=== PATIENT | female | born 1970 | race African-American/Black ===

== ENCOUNTER 2016-07-04 15:45 | Emergency (ER) | payer BC ==
--- NOTE | 2016-07-04 15:57 | ER Document Report ---
ED Medical Screen (RME) - General Stated Complaint: BODY PAIN,NAUSEA,VOMITING Notes: 46 yo female with hx/o stage 3 ovarian cancer c/o severe generalized abdominal pain since Saturday. + chemo, oncologist @ [facility]. + vomiting. last treatment on Saturday. no fever. pt is tachycardic and hypertensive TRAVEL OUTSIDE OF THE [place] IN LAST 30 DAYS: No - Related Data Allergies/Adverse Reactions: No Known Allergies Allergy (Verified 01/23/16 08:31) Past Medical History GI Medical History: Reports: Hx Gastroesophageal Reflux Disease Physical Exam - Vital signs Vitals: Temp Pulse Resp BP Pulse Ox 97.2 F 121 H 26 H 141/102 H 98 07/04/16 15:51 07/04/16 15:51 07/04/16 15:51 07/04/16 15:51 07/04/16 15:51 Course - Vital Signs Vital signs: Temp Pulse Resp BP Pulse Ox 97.2 F 121 H 26 H 141/102 H 98 07/04/16 15:51 07/04/16 15:51 07/04/16 15:51 07/04/16 15:51 07/04/16 15:51
[2016-07-04] MEDS ORDERED: NORMAL SALINE 1000 ML 1,000 ML IV PRN (17:05)
[2016-07-04] MEDS ORDERED: ONDANSETRON HCL INJ/PF 4 MG/2 ML SDV IV ONE (17:06)
[2016-07-04] MEDS ORDERED: HYDROMORPHONE HCL INJ/PF 2 MG/ML AMPULE IV ONE ×2 (17:06→20:13)
--- NOTE | 2016-07-04 17:08 | ER Document Report ---
ED General - General Chief Complaint: Abdominal Pain Stated Complaint: BODY PAIN,NAUSEA,VOMITING Time seen by provider: 17:06 Mode of Arrival: Ambulatory Information source: Patient Notes: This is a 46-year-old female with stage III ovarian cancer (followed by [facility], last chemotherapy last Saturday: 5 days ago) who presents to the emergency room with decreased by mouth intake, abdominal pain. TRAVEL OUTSIDE OF THE [place] IN LAST 30 DAYS: No - HPI Onset: Last week Onset/Duration: Gradual Quality of pain: No pain Severity: None Pain Level: Denies Associated symptoms: Weakness. denies: Chills, Fever, Shortness of breath Exacerbated by: Denies Relieved by: Denies Similar symptoms previously: No Recently seen / treated by doctor: No - Related Data Allergies/Adverse Reactions: No Known Allergies Allergy (Verified 07/04/16 15:55) Home Medications: Current Home Medications Dexamethasone [Dexamethasone] 8 mg PO QAM 07/04/16 [History] Dexamethasone [Dexamethasone] 20 mg PO QPM 07/04/16 [History] Esomeprazole Magnesium [Nexium] 20 mg PO QAM 07/04/16 [History] Gabapentin [Gabapentin] 300 mg PO ASDIR PRN 07/04/16 [History] Hydromorphone HCl [Hydromorphone HCl] 1 - 3 tab PO Q4HP PRN 07/04/16 [History] Lactulose [Lactulose] 15 ml PO ASDIR PRN 07/04/16 [History] Ondansetron HCl [Ondansetron HCl] 8 mg PO Q8HP PRN 07/04/16 [History] Oxycodone HCl [Oxycodone HCl] 10 mg PO Q4HP PRN 07/04/16 [History] Prochlorperazine Maleate [Prochlorperazine Maleate] 10 mg PO Q6HP PRN 07/04/16 [ History] Past Medical History - General Information source: Patient - Social History Smoking Status: Never Smoker Cigarette use (# per day): No Chew tobacco use (# tins/day): No Frequency of alcohol use: None Drug Abuse: None Lives with: Family Family History: None Patient has suicidal ideation: No Patient has homicidal ideation: No - Past Medical History Cardiac Medical History: Reports: None Pulmonary Medical History: Reports: None EENT Medical History: Reports: None Neurological Medical History: Reports: None Endocrine Medical History: Reports: None Renal/ Medical History: Denies: Hx Peritoneal Dialysis Malignancy Medical History: Reports: Hx Ovarian Cancer GI Medical History: Reports: Hx Gastroesophageal Reflux Disease Musculoskeltal Medical History: Reports None Skin Medical History: Reports None Psychiatric Medical History: Reports: None Traumatic Medical History: Reports: None Surgical Hx: Other Review of Systems - Review of Systems Constitutional: denies: Chills, Fever EENT: No symptoms reported Cardiovascular: No symptoms reported Respiratory: No symptoms reported Gastrointestinal: See HPI Genitourinary: No symptoms reported Female Genitourinary: No symptoms reported Musculoskeletal: No symptoms reported Skin: No symptoms reported Hematologic/Lymphatic: No symptoms reported Neurological/Psychological: No symptoms reported Physical Exam - Vital signs Vitals: Temp Pulse Resp BP Pulse Ox 97.2 F 121 H 26 H 141/102 H 98 07/04/16 15:51 07/04/16 15:51 07/04/16 15:51 07/04/16 15:51 07/04/16 15:51 Notes: Physical exam: GENERAL: 36-year-old female, alert, lethargic it, and pain HEAD: Atraumatic, normocephalic. EYES: Pupils equal round and reactive to light, extraocular movements intact, sclera anicteric, conjunctiva are normal. ENT: TMs normal, nares patent, oropharynx clear without exudates. Dry mucous membranes. NECK: Normal range of motion, supple without lymphadenopathy or JVD. LUNGS: Breath sounds clear to auscultation bilaterally and equal. No wheezes rales or rhonchi. HEART: Regular rate and rhythm without murmurs, rubs or gallops. ABDOMEN: Soft, normoactive bowel sounds. Patient is tender around the umbilicus , there is palpable masses in the abdomen. No masses appreciated. EXTREMITIES: Normal range of motion, no pitting or edema. No clubbing or cyanosis. NEUROLOGICAL: Cranial nerves II through XII grossly intact. Normal speech, normal gait. PSYCH: Normal mood, normal affect. SKIN: Warm, Dry, normal turgor, no rashes or lesions noted. Course - Re-evaluation Re-evalutation: 07/04/16 23:44 On repeat evaluation, the patient looks quite good. She responded well to IV fluids. I did give her some pain medicine and some antiemetics. She does feel good enough to go home. I don't see any evidence of infection tonight. She will follow-up with her oncologist. I've advised her to return if she has any problems. I've given her copies of her labs, CT report as well as a CT on disc for when she sees the oncologist. 07/04/16 23:45 - Vital Signs Vital signs: Temp Pulse Resp BP Pulse Ox 97.2 F 121 H 24 H 139/114 H 100 07/04/16 15:51 07/04/16 15:51 07/04/16 20:01 07/04/16 20:00 07/04/16 20:01 - Laboratory Result Diagrams: 07/04/16 17:45 07/04/16 17:45 Laboratory results interpreted by me: 07/04/16 07/04/16 07/04/16 17:45 17:45 18:35 RDW 17.5 H Sodium 131.8 L Chloride 96 L BUN 23 H Glucose 126 H Lipase 22.8 L Urine Protein 30 H Urine Glucose (UA) 50 H Urine Ketones 20 H Urine Blood SMALL H Urine Urobilinogen 2.0 H - Diagnostic Test Radiology reviewed: Image reviewed, Reports reviewed - CT shows intraperitoneal fluid with ovarian mass. Discharge - Discharge Clinical Impression: Dehydration, abdominal pain, ovarian cancer Condition: Stable Disposition: HOME, SELF-CARE Additional Instructions: Recommendations: Work on the fluid in tight: A little at a time. Continue with your medicines. Follow-up with [facility] as planned When you do go to the oncologist, bring a copy of today's labs and CT report as well as the CT itself. Return to the emergency room for worsening pain, if you're unable to tolerate fluids or any concerns he getting worse. Referrals: PADMAJA CLEMENT MD [Primary Care Provider] - Follow up as needed
[2016-07-04 18:05] LABS: ABSOLUTE LYMPHOCYTES (AUTO) 1.1 10^3/uL (0.5-4.7); ABSOLUTE MONOCYTES (AUTO) 0.3 10^3/uL (0.1-1.4); ABSOLUTE NEUT (AUTO) 2.5 10^3/uL (1.7-8.2); BASOPHILS % (AUTO) 0.3 % (0-2); EOSINOPHILS % (AUTO) 0.6 % (0-6); HEMATOCRIT 39.1 % (36.0-47.0); HEMOGLOBIN 12.7 g/dL (12.0-15.5); LYMPHOCYTES % (AUTO) 28.5 % (13-45); MEAN CORPUSCULAR HEMOGLOBIN 27.3 pg (27.0-33.4); MEAN CORPUSCULAR HGB CONC 32.5 g/dL (32.0-36.0); MEAN CORPUSCULAR VOLUME 84 fl (80-97); MONOCYTES % (AUTO) 7.5 % (3-13); RED BLOOD COUNT 4.65 10^6/uL (3.72-5.28); RED CELL DISTRIBUTION WIDTH 17.5 % (11.5-14.0); SEGMENTED NEUTROPHILS % (AUTO) 63.1 % (42-78)
[2016-07-04 18:09] LABS: ALANINE AMINOTRANSFERASE 25 U/L (9-52); ALBUMIN 3.9 g/dL (3.5-5.0); ALKALINE PHOSPHATASE 77 U/L (38-126); ANION GAP 11 (5-19); ASPARTATE AMINO TRANSFERASE 18 U/L (14-36); BILIRUBIN,TOTAL 0.9 mg/dL (0.2-1.3); BLOOD UREA NITROGEN 23 mg/dL (7-20); CALCIUM 8.9 mg/dL (8.4-10.2); CARBON DIOXIDE 25 mmol/L (22-30); CHLORIDE 96 mmol/L (98-107); CREATININE RESULT 0.53 mg/dL (0.52-1.25); GLUCOSE 126 mg/dL (75-110); LIPASE 22.8 U/L (23-300); POTASSIUM 3.6 mmol/L (3.6-5.0); SODIUM 131.8 mmol/L (137-145); TOTAL PROTEIN 7.4 g/dL (6.3-8.2)
[2016-07-04 19:00] LABS: APPEARANCE,URINE SLIGHTLY-CLOUDY; BILIRUBIN,URINE NEGATIVE (NEGATIVE); GLUCOSE, URINE 50 mg/dL (NEGATIVE); KETONES,URINE 20 mg/dL (NEGATIVE); LEUKOCYTE ESTERASE,URINE NEGATIVE (NEGATIVE); NITRITE,URINE NEGATIVE (NEGATIVE); PROTEIN,URINE 30 mg/dL (NEGATIVE); URINE SPECIFIC GRAVITY 1.031
[2016-07-05 01:32] VITALS: BP 154/138
== END 2016-07-04 21:13 | disposition home or self-care (01) ==
LOC: ER 15:45
DX: E86.0 Dehydration (principal); R11.2 Nausea with vomiting, unspecified; R10.9 Unspecified abdominal pain; C56.9 Malignant neoplasm of unspecified ovary; M79.1 Myalgia
CPT/HCPCS: 36591; 96376; 99284; 96361; 96374; 96375; 36415; 83690; 85025; 80053; 81001; 74177; J1170; J2405; J7030

== ENCOUNTER 2016-08-01 16:47 | Emergency (ER) | payer BC ==
[2016-08-01] MEDS ORDERED: MORPHINE SULFATE 10 MG/ML INJ IM ONE (17:24)
--- NOTE | 2016-08-01 17:24 | ER Document Report ---
ED Medical Screen (RME) - General Stated Complaint: BODY PAIIN Notes: 46 yo female with hx/o stage IV ovarian cancer c/o generalized body pain. oncologist @ [facility] + nausea Dilaudid PO not working TRAVEL OUTSIDE OF THE [place] IN LAST 30 DAYS: No - Related Data Allergies/Adverse Reactions: No Known Allergies Allergy (Verified 08/01/16 17:21) Past Medical History Renal/ Medical History: Denies: Hx Peritoneal Dialysis Malignancy Medical History: Reports: Hx Ovarian Cancer GI Medical History: Reports: Hx Gastroesophageal Reflux Disease Physical Exam - Vital signs Vitals: Temp Pulse Resp BP Pulse Ox 99.1 F 125 H 38 H 170/124 H 100 08/01/16 16:57 08/01/16 16:57 08/01/16 16:57 08/01/16 16:57 08/01/16 16:57 Course - Vital Signs Vital signs: Temp Pulse Resp BP Pulse Ox 99.1 F 125 H 38 H 170/124 H 100 08/01/16 16:57 08/01/16 16:57 08/01/16 16:57 08/01/16 16:57 08/01/16 16:57
[2016-08-01] MEDS ORDERED: ONDANSETRON 4 MG TAB.RAPDIS PO ONE (17:25)
[2016-08-01] MEDS ORDERED: HYDROMORPHONE HCL INJ/PF 2 MG/ML AMPULE IM ONE (21:21)
[2016-08-01] MEDS ORDERED: PROMETHAZINE HCL 25 MG TABLET PO ONE (21:21)
--- NOTE | 2016-08-01 21:23 | ER Document Report ---
ED General Pain - General Chief Complaint: Pain All Over Stated Complaint: BODY PAIIN Notes: Patient is a 46-year-old female presents emergency Department complaining of severe pain. Patient has a history of stage IV ovarian cancer with majority of disease in her abdomen. Patient states that she is having severe pain that is not being controlled with her by mouth medication at home. Patient takes one to 3 tablets of immediate release 4 mg hydromorphone tablets every 4 hours as needed for pain as well as extended release 40 mg oxycodone tablets daily. She also admits to nausea and vomiting not responding to home Zofran. Patient states that she is due to follow up on Saturday with her oncologist complains in discussing home pain management at that time. Otherwise at this time she denies any fevers, cough, shortness of breath, difficulty breathing, headache, urinary or vaginal symptoms. Follows with [facility] Primary care is Dr. Saskia Montenegro TRAVEL OUTSIDE OF THE [place] IN LAST 30 DAYS: No - Related Data Allergies/Adverse Reactions: No Known Allergies Allergy (Verified 08/01/16 17:21) Past Medical History - Social History Smoking Status: Unknown if Ever Smoked Chew tobacco use (# tins/day): No Frequency of alcohol use: None Drug Abuse: None Family History: None Patient has suicidal ideation: No Patient has homicidal ideation: No Renal/ Medical History: Denies: Hx Peritoneal Dialysis Malignancy Medical History: Reports: Hx Ovarian Cancer GI Medical History: Reports: Hx Gastroesophageal Reflux Disease Review of Systems - Review of Systems Musculoskeletal: Other - Generalized pain -: Yes All other systems reviewed and negative Physical Exam - Vital signs Vitals: Temp Pulse Resp BP Pulse Ox 99.1 F 125 H 38 H 170/124 H 100 08/01/16 16:57 08/01/16 16:57 08/01/16 16:57 08/01/16 16:57 08/01/16 16:57 - Notes Notes: PHYSICAL EXAM GENERAL: Alert, interacts well. HEAD: Normocephalic, atraumatic. EYES: Pupils equal, round, and reactive to light. Extraocular movements intact. ENT: Oral mucosa moist, tongue midline. NECK: Full range of motion. Supple. Trachea midline. LUNGS: Clear to auscultation bilaterally, no wheezes, rales, or rhonchi. No respiratory distress. HEART: Regular rate and rhythm. No murmurs, gallops, or rubs. ABDOMEN: Firm, distended with palpable masses. No guarding, rebound, or rigidity.. Bowel sounds present in all 4 quadrants. EXTREMITIES: Moves all 4 extremities spontaneously. No edema, radial and dorsalis pedis pulses 2/4 bilaterally. No cyanosis. NEUROLOGICAL: Alert and oriented x4. Normal speech. PSYCH: Normal affect, normal mood. SKIN: Warm, dry, normal turgor. No rashes or lesions noted. Course - Re-evaluation Re-evalutation: 08/01/16 21:25 Patient is a 46-year-old female who presents emergency Department complaining of generalized abdominal pain as well as all over body pain which she says is consistent with her chronic pain due to her stage IV ovarian cancer. She is on very high doses of narcotics at home for chronic pain management of her disease. At this time patient is refusing any laboratory evaluation or IV fluid administration. She states "I just want pain medication so I can go home and sleep". I discussed with her our department policy on writing prescriptions for chronic pain. I offered to her to manage her pain in the department which she is accepted. Triage vitals do show an elevated heart rate at 125 which I discussed with the patient would indicate further evaluation, she is refusing at this time stating she is here just for pain management. Per [facility] protocol and guidelines, this case was discussed with supervising physician Dr. Jerry Lopez prior to discharge - Vital Signs Vital signs: Temp Pulse Resp BP Pulse Ox 98.3 F 116 H 22 H 132/96 H 100 08/01/16 20:58 08/01/16 20:58 08/01/16 20:58 08/01/16 20:58 08/01/16 20:58 Discharge - Discharge Clinical Impression: Generalized pain Condition: Good Disposition: HOME, SELF-CARE Additional Instructions: Please be sure to follow-up with [facility] as scheduled Chronic Pain Control Stress, inactivity, and depression make pain more severe regardless of the cause of the pain. Stress and poor physical condition can cause pain such as headaches and backache. Relaxation: Rest in a quiet place with your eyes closed for 20 minutes twice daily. Concentrate on a pleasant image, or simply "feel" your breathing. Clear your mind. Stress management: Deal with your "stressors." Either take action, or eliminate the stressor from your life. Don't let things hang over you. Accept those things you can't change. Nutrition: Eat small, balanced meals -- don't skip, don't overeat. Meals should be high-carbohydrate, low-sugar, low-fat. Exercise: Exercise helps painful conditions and eases stress. Get 30 minutes of moderate exercise, five days a week. Do an activity that does not flare your pain. Precautions: Pain which continues to disrupt daily activities, or which changes in nature, requires a medical evaluation. Pain Clinic referral is available. We do not manage chronic pain in the Emergency Department. We will try to appropriately help you through an acute flare of your chronic painful condition , but for on-going chronic pain that does not improve, you will need to see your private doctor or embossed or impressed lettering painter. We do not provide repeated medication management of chronic painful conditions. If you wish, we can provide the name of local pain management physicians. Prescriptions: Promethazine HCl [Phenergan 25 mg Tablet] 1 - 2 tab PO Q6H PRN #15 tablet PRN Reason: Referrals: TARSHA MONTENEGRO, [Primary Care Provider] - Follow up as needed
[2016-08-02 08:40] VITALS: BP 152/98
== END 2016-08-01 22:20 | disposition home or self-care (01) ==
LOC: ER 16:47
DX: G89.3 Neoplasm related pain (acute) (chronic) (principal); C56.9 Malignant neoplasm of unspecified ovary; R11.2 Nausea with vomiting, unspecified; Z79.891 Long term (current) use of opiate analgesic
CPT/HCPCS: 99283; 96372; 96374; S0119; J2270; J1170